=== PATIENT | female | born 1990 | race Caucasian/White ===

== ENCOUNTER 2022-09-10 11:04 | Outpatient (CLI) | payer OTHER | END 2022-09-10 21:03 | disposition home or self-care (01) | LOC: SRD 11:04 | PROVIDERS: ATTEND Specialist | DX: N92.6 Irregular menstruation, unspecified (principal); R58 Hemorrhage, not elsewhere classified | CPT/HCPCS: 58340; 74740; Q9967; C1751 ==

== ENCOUNTER 2023-07-16 08:08 | Inpatient (IN) | payer OTHER ==
[~2023-07-16] VITALS: Ht 170.2 cm; Wt 105.2 kg
[2023-07-16 10:36] VITALS: BP_SYST 114; PULSE 83; RESP 18; TEMP 98
[2023-07-16] MEDS ORDERED: CEFAZOLIN 2 GM IVPB PREMIX 50 ML IV ONE (11:00)
[2023-07-16] MEDS ORDERED: LR 1,000 ML IV ONE ×2 (11:00→14:00)
[2023-07-16 11:29] LABS: BILIRUBIN,URINE NEGATIVE (NEGATIVE); CLARITY/URINE CLOUDY (CLEAR); COLOR,URINE YELLOW (YELLOW); GLUCOSE,URINE NEGATIVE (NEGATIVE); KETONES,URINE TRACE (NEGATIVE); LEUKOCYTE ESTERASE ,URINE 3+ (NEGATIVE); NITRITE, URINE NEGATIVE (NEGATIVE); PH,URINE 6.5 (5.0-8.0); PROTEIN URINE TRACE (NEGATIVE); UROBILINOGEN,URINE 0.2 (0.2-1.0)
[2023-07-16 11:31] LABS: BASOPHILS % (AUTO) 0.4 % (0.0-2.0); EOSINOPHILS # (AUTO) 0.1 K/uL (0.0-0.4); EOSINOPHILS % (AUTO) 0.6 % (0.0-4.0); HEMATOCRIT 34.1 % (36-48); HEMOGLOBIN 11.7 g/dL (12.0-16.0); LYMPHOCYTES # (AUTO) 1.8 K/uL (1.0-5.5); LYMPHOCYTES % (AUTO) 17.9 % (20.5-51.5); MEAN CORPUSCULAR HEMOGLOBIN 32 pg (27-31); MEAN CORPUSCULAR HGB CONC 34 % (32-36); MEAN CORPUSCULAR VOLUME 93 fL (79.0-98.0); MONOCYTES # (AUTO) 0.6 K/uL (0.0-1.0); NEUTROPHILS # (AUTO) 7.6 K/uL (1.8-7.7); NEUTROPHILS % (AUTO) 75.1 % (40.0-70.0); PLATELET COUNT (AUTO) 180 K/uL (130-430); RED BLOOD CELL COUNT(AUTO) 3.68 MIL/uL (4.2-6.2); RED CELL DISTRIBUTION WIDTH 13.5 % (9.0-15.0); WHITE BLOOD COUNT (AUTO) 10.2 K/uL (4.8-10.8)
[2023-07-16 11:36] LABS: BLOOD, URINE TRACE (NEGATIVE)
[2023-07-16 11:42] LABS: BACTERIA,URINE MODERATE /HPF (None Seen); CALCIUM OXALATE CRYSTALS,UR 0-10 /HPF (None Seen); WBC,URINE 20-50 /HPF (0-3)
[2023-07-16 11:52] LABS: ALBUMIN 2.3 g/dL (3.4-4.8); CALCIUM 7.6 mg/dL (8.4-11.0); CREATININE 0.57 mg/dL (0.55-1.30); POTASSIUM 3.9 mmol/L (3.5-5.1); TOTAL BILIRUBIN 0.4 mg/dL (0.0-1.0); TOTAL PROTEIN, SERUM 6.1 g/dL (6.4-8.3)
[2023-07-16] MEDS ORDERED: HYDROcodone/ACETAMIN 5-325 MG TAB (NORCO/ VICODIN) PO PRN (12:45)
[2023-07-16] MEDS ORDERED: OXYCODONE/ACETAMINOPHEN *10*mg/325 mg TABLET PO PRN (12:45)
[2023-07-16] MEDS ORDERED: DIPHTH,PERTUSS(ACELL),TET VAC 0.5 ML VIAL (Tdap) I.M. PRN (12:45)
[2023-07-16] MEDS ORDERED: OXYCODONE/ACETAMINOPHEN 5-325 TABLET PO PRN (12:45)
[2023-07-16] MEDS ORDERED: RHO(D) IMMUNE GLOBULIN/MALTOSE 1500 UNITS/1.3 ML (WINHRO) IM PRN (12:45)
[2023-07-16] MEDS ORDERED: TEMAZEPAM 15 MG CAPSULE PO PRN (12:45)
[2023-07-16] MEDS ORDERED: BISACODYL 10 MG/SUPPOSITORY RC PRN (12:45)
[2023-07-16] MEDS ORDERED: LANOLIN 7 GM OINT. TP PRN (12:45)
[2023-07-16] MEDS ORDERED: LR 1,000 ML IV SCH (12:45)
[2023-07-16] MEDS ORDERED: ANUSOL 1 EA SUPP.RECT (PREPARATION H) RC PRN (12:45)
[2023-07-16] MEDS ORDERED: NALOXONE HCL 0.4 MG/ML AMP (NARCAN) IVP PRN ×4 (12:45→14:00)
[2023-07-16] MEDS ORDERED: MEASLES,MUMPS&RUBELLA VACC/PF 12500 UNIT/0.5 ML VIAL SUBQ PRN (12:45)
[2023-07-16] MEDS ORDERED: fentaNYL CITRATE/PF 100 MCG/2 ML AMP ONE ×2 (13:00→13:06)
[2023-07-16] MEDS ORDERED: DEXAMETHASONE SOD PHOSPHATE 4 MG/ML VIAL ONE (13:00)
[2023-07-16] MEDS ORDERED: BUPIVACAINE /DEX PF 0.75% SPINAL 2 ML AMP INJ ONE (13:00)
[2023-07-16] MEDS ORDERED: LR 1,000 ML IV.SOLN IV ONE (13:00)
[2023-07-16] MEDS ORDERED: NS IRRIG SOLN 1000 ML IR ONE (13:00)
[2023-07-16] MEDS ORDERED: MORPHINE SULFATE 10MG/10ML PF AMP ONE ×2 (13:00→13:05)
[2023-07-16 14:00] VITALS: BP_SYST 116
[2023-07-16] MEDS ORDERED: MEPERIDINE HCL/PF 25 MG/ML DISP.SYRIN IVP PRN (14:00)
[2023-07-16] MEDS ORDERED: KETOROLAC TROMETHAMINE 30 MG VIAL IM PRN (14:00)
[2023-07-16] MEDS ORDERED: HYDROmorphone 1 MG/ML INJ. CARTRIDGE IVP PRN ×2 (14:00)
[2023-07-16] MEDS ORDERED: NALBUPHINE HCL 10 MG/ML AMP IVP PRN (14:00)
[2023-07-16] MEDS ORDERED: DIPHENHYDRAMINE INJ 50 MG/ML VIAL IVP PRN (14:00)
[2023-07-16] MEDS ORDERED: ONDANSETRON HCL 4 MG/2 ML VIAL IVP PRN ×3 (14:00)
[2023-07-16] MEDS ORDERED: OXYTOCIN 10 UNIT/ML VIAL ONE (14:03)
[2023-07-16] MEDS ORDERED: OXYTOCIN 20 UNIT in LR 1,000 ML IV ONE (15:00)
[2023-07-16] MEDS: CEFAZOLIN 1 GM IVPB PREMIX 50 ML IV SCH ×2 (18:20→23:54)
[2023-07-16] MEDS ORDERED: ACETAMINOPHEN 325 MG TABLET PO SCH (18:30)
[2023-07-16] MEDS: ACETAMINOPHEN 500 MG TABLET PO SCH (18:49)
[2023-07-16] MEDS: SENNOSIDES/DOCUSATE SODIUM 1 TAB TABLET(SENOKOT-S) PO SCH (20:53)
[2023-07-16] MEDS: DOCUSATE SODIUM 100 MG CAPSULE PO SCH (20:53)
[2023-07-17] MEDS: ACETAMINOPHEN 500 MG TABLET PO SCH ×2 (02:30→12:10)
[2023-07-17] MEDS: KETOROLAC TROMETHAMINE 30 MG VIAL IVP SCH ×4 (05:51→17:53)
[2023-07-17] MEDS: CEFAZOLIN 1 GM IVPB PREMIX 50 ML IV SCH (06:14)
[2023-07-17 08:17] LABS: BASOPHILS % (AUTO) 0.2 % (0.0-2.0); EOSINOPHILS # (AUTO) 0.1 K/uL (0.0-0.4); EOSINOPHILS % (AUTO) 0.5 % (0.0-4.0); HEMATOCRIT 30.7 % (36-48); HEMOGLOBIN 10.3 g/dL (12.0-16.0); LYMPHOCYTES # (AUTO) 2.1 K/uL (1.0-5.5); LYMPHOCYTES % (AUTO) 13.9 % (20.5-51.5); MEAN CORPUSCULAR HEMOGLOBIN 32 pg (27-31); MEAN CORPUSCULAR HGB CONC 34 % (32-36); MEAN CORPUSCULAR VOLUME 95 fL (79.0-98.0); MONOCYTES # (AUTO) 1.2 K/uL (0.0-1.0); MONOCYTES % (AUTO) 8.3 % (1.7-9.3); NEUTROPHILS # (AUTO) 11.5 K/uL (1.8-7.7); NEUTROPHILS % (AUTO) 77.1 % (40.0-70.0); PLATELET COUNT (AUTO) 162 K/uL (130-430); RED BLOOD CELL COUNT(AUTO) 3.25 MIL/uL (4.2-6.2); RED CELL DISTRIBUTION WIDTH 13.7 % (9.0-15.0)
[2023-07-17] MEDS: OXYTOCIN/0.9 % SODIUM CHLORIDE 1,000 ML IV SCH ×2 (09:29)
[2023-07-17] MEDS: DOCUSATE SODIUM 100 MG CAPSULE PO SCH ×2 (12:10→21:00)
[2023-07-17] MEDS: SIMETHICONE 80 MG TAB.CHEW PO PRN ×3 (17:51→23:56)
[2023-07-17] MEDS: SENNOSIDES/DOCUSATE SODIUM 1 TAB TABLET(SENOKOT-S) PO SCH (21:00)
[2023-07-17] MEDS: IBUPROFEN 600 MG TABLET PO SCH (23:56)
[2023-07-18] MEDS: SIMETHICONE 80 MG TAB.CHEW PO PRN ×5 (02:47→15:02)
[2023-07-18] MEDS: IBUPROFEN 600 MG TABLET PO SCH ×2 (06:05→12:14)
[2023-07-18] MEDS: DOCUSATE SODIUM 100 MG CAPSULE PO SCH (08:57)
== END 2023-07-18 15:15 | disposition home or self-care (01) | DRG 788 ==
LOC: SPU 10:01
PROVIDERS: ADMIT Specialist; ATTEND Specialist
PROC: 10D00Z1 Extraction of Products of Conception, Low, Open Approach (ICD-10-PCS; principal; 2023-07-16 13:00)
DX: O36.63X0 Maternal care for excessive fetal growth, third trimester, not applicable or unspecified (principal); O69.81X0 Labor and delivery complicated by cord around neck, without compression, not applicable or unspecified; Z3A.39 39 weeks gestation of pregnancy; Z37.0 Single live birth
CPT/HCPCS: 36415; 80053; 81000; 85025; 85730-TC; 86592; 86886; 86900; 86901; 86920; 87086; 94760; J0690; J1100; J1885; J2274; J2590; J3010; J3490; J7120